=== PATIENT | female | born 1980 | race Caucasian/White ===

== ENCOUNTER 2022-10-06 12:40 | Outpatient (CLI) | payer BC, SELFPAY ==
[2022-10-06 13:08] LABS: Hemoglobin 8.3 g/dL (12.0-15.0); Mean Corpuscular HGB Conc 27.7 g/dl (32-36); Mean Corpuscular Hemoglobin 20.6 pg (26-34); Mean Corpuscular Volume 74.4 fl (80-100); Mean Platelet Volume 10.1 fl (7.4-10.4); Platelet Count Result 397 k/mm3 (150-375); Red Blood Count 4.03 M/mm3 (4.2-5.4); Red Cell Distribution Width 15.7 % (11.5-14.5); White Blood Count 7.2 K/mm3 (4.5-10.0)
[2022-10-06 13:30] LABS: Albumin Level 4.1 g/dL (3.5-5.1); Anion Gap 6 mmol/L (8-16); Blood Urea Nitrogen 13 mg/dL (7-17); Calcium 8.6 mg/dL (8.4-10.2); Carbon Dioxide 26 mmol/L (22-30); Chloride 108 mmol/L (98-107); Estimated Glomerular Filt Rate > 60; Glucose 101 mg/dL (65-110); Potassium 4.3 mmol/L (3.4-5.0); Sodium 140 mmol/L (137-145)
[2022-10-06 14:04] LABS: Iron 23 ug/dL (37-170)
== END 2022-10-06 12:41 | disposition home or self-care (01) ==
LOC: ANHLAB 12:44
PROVIDERS: Visit Provider Surgery Plastic and Reconstructive Surgery
DX: R63.4 Abnormal weight loss (principal)
CPT/HCPCS: 36415; 80048; 82040; 83540; 84425; 85027

== ENCOUNTER 2022-11-03 10:54 | Emergency (ER) | payer BC, SELFPAY ==
[2022-11-03] VITALS (23 sets, daily range): BP systolic 87–128; BP diastolic 51–74; PULSE 52–73; RESP 8–19; TEMP 36.1; O2SAT 97–100
--- NOTE | ~2022-11-03 | XR_ITS ---
Portable chest x-ray Comparison: None Clinical History: Dizziness Findings: Lungs are clear, without focal consolidation or pleural effusion. Cardiomediastinal silho uette is unremarkable. Bones and soft tissues are unremarkable. Impression: Clear lungs. Reviewed, dictated and finalized at location M. Impression: Clear lungs.
--- NOTE | ~2022-11-03 | CT_ITS ---
Non-contrast Head CT History: Dizziness Technique: Axial non-contrast imaging of the brain was performed. Dose reduction technique was used on this scan by utilizing automated exposure control and iterative reconstruction technique. The dose -length product (DLP) was 681.00 mGy-cm. Findings: There is no evidence of intracranial hemorrhage, mass lesion, or acute infarct. Brain par enchyma appears normal. The ventricles and subarachnoid spaces are normal in size. The calvarium ap pears normal. The visualized paranasal sinuses and mastoid air cells are clear. Impression: No significant abnormality seen. Reviewed, dictated and finalized at location . Impression: No significant abnormality seen.
[2022-11-03 12:36] LABS: Basophils Percent Auto 0.7 % (0.2-1.2); Eosinophils Absolute Auto 0.1 K/mm3 (0-0.3); Eosinophils Percent Auto 1.3 % (0-4.4); Hematocrit 29.8 % (37.0-47.0); Hemoglobin 8.2 g/dL (12.0-15.0); Immature Granulocyte Absolute 0.01 K/mm3 (0.00-0.031); Immature Granulocyte Percent A 0.2 % (0-0.5); Lymphocytes Absolute Auto 1.69 K/mm3 (0.9-3.2); Lymphocytes Percent Auto 31.1 % (18.3-44.2); Mean Corpuscular HGB Conc 27.5 g/dl (32-36); Mean Corpuscular Hemoglobin 20.2 pg (26-34); Mean Corpuscular Volume 73.4 fl (80-100); Mean Platelet Volume 10.3 fl (7.4-10.4); Monocytes Absolute Auto 0.3 K/mm3 (0.1-0.6); Monocytes Percent Auto 6.3 % (2.6-8.5); Neutrophils Absolute Auto 3.3 K/mm3 (1.3-6.7); Neutrophils Percent Auto 60.4 % (45.5-73.1); Platelet Count Result 383 k/mm3 (150-375); Red Blood Count 4.06 M/mm3 (4.2-5.4); Red Cell Distribution Width 17.2 % (11.5-14.5); White Blood Count 5.4 K/mm3 (4.5-10.0)
[2022-11-03 12:43] LABS: Anion Gap 4 mmol/L (8-16); Blood Urea Nitrogen 10 mg/dL (7-17); Calcium 8.8 mg/dL (8.4-10.2); Carbon Dioxide 29 mmol/L (22-30); Chloride 105 mmol/L (98-107); Estimated CRCL calculation 67 ml/min; Estimated Glomerular Filt Rate 55; Glucose 82 mg/dL (65-110); Sodium 138 mmol/L (137-145)
--- NOTE | 2022-11-03 13:05 | ED.WEAKNESS ---
HPI - Weakness General Chief complaint: Weakness <Ana María Horta MD - Last Filed: 11/03/22 14:35> Stated complaint: Weakness <Ana María Horta MD - Last Filed: 11/03/22 14:35> Time Seen by Provider: 11/03/22 11:50 <Ana María Horta MD - Last Filed: 11/03/22 14:35> Source: patient <Ana María Horta MD - Last Filed: 11/03/22 14:35> Mode of arrival: ambulatory <Ana María Horta MD - Last Filed: 11/03/22 14:35> Limitations: no limitations <Ana María Horta MD - Last Filed: 11/03/22 14:35> History of Present Illness HPI Narrative: 42 years old white female drove herself to the emergency room because been feeling foggy, called, tingling numbness of the tips of her fingers, started yesterday, has been constant since. History of iron deficiency anemia of unknown etiology, heavy menstrual cycle/today is the third day which is not different than her previous menstrual cycles, gastric sleeve 4 years ago, patient was seen her family physician on October 05, 2022, hemoglobin found to be 8.3. Patient was started on infusion and oral supplement. Patient was told that no surgery until her hemoglobin is 10 <Ana María Horta MD - Last Filed: 11/03/22 14:35> Related Data Allergies/Adverse reactions: Allergies Allergy/AdvReac Type Severity Reaction Status Date / Time No Known Allergies Allergy Verified 11/03/22 11:22 <Ana María Horta MD - Last Filed: 11/03/22 14:35> Review of Systems Review of Systems: All systems reviewed & are unremarkable except as noted in HPI and below <Ana María Horta MD - Last Filed: 11/03/22 14:35> Exam Narrative: General appearance: Well-developed, well-nourished Skin: Pale Head: Normocephalic, nontraumatic Eyes: Clear conjunctiva ENT: Oropharynx normal, ears normal, nose normal Neck: Supple, nontender Chest and respiratory: Airway patent, no respiratory distress, no accessory muscle use Heart: Regular rate/rhythm Abdomen: Soft, nontender, no organomegaly, quiet bowel sounds Vascular: Normal peripheral pulses, normal capillary refill. Musculoskeletal: Normal range of motion, nontender back Neurologic: Alert and oriented ?3, SALESPERSON FURNITURE is normal as tested, no gross motor deficit <Ana María Horta MD - Last Filed: 11/03/22 14:35> Course Reevaluation(s) Reevaluation #1: Patient care was signed out to me by Dr. Horta with the plan for IV infusion and discharged to home. Patient is afebrile with no leukocytosis and a hemoglobin similar to her previous baseline. Patient's CMP is also similar to her baseline with a mildly elevated creatinine. Head CT showed no acute abnormality and chest x-ray lungs were clear. Patient was reevaluated and patient states she does feel improved. Patient reports he does have heavy menstrual cycle and cannot tolerate control for helping to regulate her periods. Patient states that she is not completely satisfied with her current primary care physician. Plan for discharge is to give her alternate number for a primary care physician and also schedule her for follow-up with Dr. Tapia to help further evaluate her anemia. Patient was comfortable with the plan for discharge and close follow-up. <Rafael Orr MD - Last Filed: 11/03/22 19:22> Vital Signs Vital signs: Vital Signs Temperature 97 F L 11/03/22 11:14 Pulse Rate 73 11/03/22 11:14 Respiratory Rate 16 11/03/22 11:14 Blood Pressure 128/68 11/03/22 11:14 Pulse Oximetry 100 11/03/22 11:14 Temperature 97 F L 11/03/22 11:14 Pulse Rate 64 11/03/22 15:50 Respiratory Rate 19 11/03/22 15:50 Blood Pressure 114/52 L 11/03/22 15:50 Pulse Oximetry 100 11/03/22 15:50 <Ana María
--- NOTE | 2022-11-03 13:17 | ECG_ITS ---
Measurements Intervals [place] Rate: 50 P: 25 [place]: 161 QRS: 41 QRSD: 84 T: 40 QT: 440 QTc: 402 Interpretive Statements SINUS BRADYCARDIA BASELINE ARTIFACT- I, II, AVR BORDERLINE ECG NO PREVIOUS ECG AVAILABLE FOR COMPARISON Electronically Signed On 11-03-2022 13:42:04 CDT by James Clark D.O.
[2022-11-03 13:34] LABS: Appearance Urine Clear (Clear); Bilirubin Urine Negative (Negative); Blood Urine Negative (Negative); Color Urine Yellow (Yellow); Glucose Urine UA Negative (Negative); Ketones Urine Negative (Negative); Leukocyte Esterase Ur Negative LEU/UL (Negative); Nitrate Urine Negative (Negative); Protein Urine Negative (Negative); Specific Grav Ur 1.006 (1.001-1.035); Urobilinogen Urine 0.2 mg/dL (<2.0); pH Urine 6.5 (5.0-9.0)
[2022-11-03 13:43] LABS: Add Urine Microscopic? NO
[2022-11-03 13:45] LABS: Troponin I < 0.012 ng/mL (0.000-0.034)
[2022-11-03] MEDS: SODIUM CHLORIDE 0.9% IV 1,000 ML 999 ML IV CONT (14:26)
== END 2022-11-03 15:51 | disposition home or self-care (01) ==
PROVIDERS: Emergency Provider Emergency Medicine
DX: D50.9 Iron deficiency anemia, unspecified (principal); R00.1 Bradycardia, unspecified
CPT/HCPCS: 36415; 70450; 71045; 80048; 81003; 84484; 85025; 93005; 96360; 99284; J7030

== ENCOUNTER 2022-11-20 08:00 | Outpatient (CLI) | payer BC, SELFPAY ==
[2022-11-20 08:41] LABS: Hematocrit 32.9 % (37.0-47.0); Hemoglobin 9.3 g/dL (12.0-15.0); Mean Corpuscular HGB Conc 28.3 g/dl (32-36); Mean Corpuscular Hemoglobin 21.8 pg (26-34); Mean Corpuscular Volume 77.2 fl (80-100); Mean Platelet Volume 10.4 fl (7.4-10.4); Platelet Count Result 323 k/mm3 (150-375); Red Blood Count 4.26 M/mm3 (4.2-5.4); Red Cell Distribution Width 23.1 % (11.5-14.5)
[2022-11-20 09:03] LABS: Iron 61 ug/dL (37-170)
== END 2022-11-20 08:01 | disposition home or self-care (01) ==
LOC: ANHLAB 08:05
PROVIDERS: Visit Provider Surgery Plastic and Reconstructive Surgery
DX: R79.89 Other specified abnormal findings of blood chemistry (principal)
CPT/HCPCS: 36415; 83540; 85027

== ENCOUNTER 2023-03-21 12:26 | Outpatient (CLI) | payer BC, SELFPAY ==
[2023-03-21 13:20] LABS: Hematocrit 38.6 % (37.0-47.0)
== END 2023-03-21 12:27 | disposition home or self-care (01) ==
LOC: ANHSURGERY 12:31
PROVIDERS: Anesthesiology; PCP Family Medicine; Visit Provider Obstetrics & Gynecology
DX: N92.0 Excessive and frequent menstruation with regular cycle (principal); D64.9 Anemia, unspecified; Z01.818 Encounter for other preprocedural examination
CPT/HCPCS: 36415; 85014; 85018; 86850; 86900; 86901

== ENCOUNTER 2023-03-28 01:29 | Day surgery (SDC) | payer BC, SELFPAY ==
[2023-03-20 08:58] VITALS: BMI 36.5
--- NOTE | 2023-03-20 09:04 | PC.NURSE ---
Report to the Outpatient Waiting Room, entrance under the green pavilion located off [facility], at time 7:30 on date 03/28/23. Planned Procedure Time: 9:30. Time changes happen often and if your time is changed the preop area will call you the afternoon before. - You and your visitor will be asked to self-screen and do not enter if you have any COVID symptoms. - A mask is optional within the hospital at this time. Patients may have clear liquids (water, carbonated beverages, clear teas, apple juice) until 3 hours prior to surgery (6:30) with a maximum of 20 ounces. - No food from midnight until time of surgery Take the following medications with a SIP of water the morning of surgery: NONE DO NOT STOP ANY OF YOUR OTHER PRESCRIPTION MEDICATIONS PRIOR TO SURGERY ?EXCEPT THE FOLLOWING Medications to discontinue per physician: N/A Date to take last dose: N/A Please no make-up, nail micronesian, hairspray, perfume, deodorant, or body powder the day of surgery. No jewelry (including any body piercings) or valuables the day of surgery, leave them at home. Please take a shower or bath the night before, or the morning of, surgery with an antibacterial soap. Wear comfortable, loose fitting clothing. - Jewelry must be removed prior to entering the operating room. Rings and piercings that are not removed may be cut off. - The hospital will not accept responsibility for valuables. - Please leave all valuables, including medications, at home the day of surgery. If you are going home after surgery, a licensed [place] driver must drive you home. - NO public transportation without another adult if you receive anesthesia. - We recommend that an adult stay with you for 24 hours following discharge. - We also recommend that you do not drive, make important decision, drink alcoholic beverages, or take any drugs that were not prescribed by your health care provider for at least 24 hours after your discharge time. Follow any additional instructions given to you from your surgeon. If you or anyone in your household have experienced Covid symptoms in the past week, please notify your surgeon or the nurse liaison at the phone number below for possible testing. Telephone instructions given to PT - CAMI SEGURA and asked if any additional questions and then verbalized understanding. Patient advised to call surgeon office or pre surgery nurse liaison [phone] if any additional questions.
--- NOTE | 2023-03-27 15:44 | WPDANESEPPF ---
Anes - Initial Pre Proc Eval Procedure: Operation Date: 03/28/23 09:30 Proposed Procedures p Total Laparoscopic Hysterectomy with Bilateral Salpingectomy - Major Cardona MD Date/Time: 03/27/23 15:44 Surgeon: Major Cardona MD Pre Op Diagnosis: Menorrhagia Patient Data Age: 42 Gender: F Height: 1.73 m Weight: 108.9 kg Allergies Allergy/AdvReac Type Severity Reaction Status Date / Time No Known Allergies Allergy Verified 03/20/23 08:57 Home Medications Medication Instructions Recorded Confirmed Type ferrous sulfate 325 mg (65 mg 325 mg PO DAILY 11/16/22 03/20/23 History iron) tablet (Iron (ferrous sulfate)) Patient hx anesthesia problems: none Family hx anesthesia problems: none Results Review: All pre-operative results and documents have been reviewed as part of the pre-operative evaluation. FOR[facility]LY [facility] Surgical History Surgical History (Updated 03/27/23 @ 15:45 by Ravi Anderson DO) History of sleeve gastrectomy 2018 Social History Social History Smoking packs per day: 0.5 Smoking cigarettes per day: 10.0 Years smoked: 15 Smoking pack-years: 7.50 Smoking status: Former smoker Tobacco type: cigarettes Smoking end date: 04/30/18 Alcohol intake: never Alcohol use details: OCCASIONALLY Substance use: never Substance use type: does not use Living arrangements: with family Additional living arrangements comments: CHILDREN Spiritual care concerns: No Anes - Eval Final PreProcedure Day of Procedure 03/27/23 15:44 Patient weight: obese Heart: regular rate and rhythm Lungs: clear to auscultation Airway: Mallampati scale class II Neurological: alert and oriented Last oral intake: >/= 8 hours ASA classification: II Emergent: no Anesthetic plan: proceed Anesthesia type and monitoring: general ETT and standard monitoring Results Review: All pre-operative results and documents have been reviewed as part of the pre-operative evaluation. Informed Consent: The patient's anesthetic plan and its attendant risks and benefits were discussed with the patient/family/POA. Questions were solicited and answers provided to the satisfaction of the patient/family/POA.
[2023-03-28] VITALS (8 sets, daily range): BP systolic 115–128; BP diastolic 53–77; PULSE 57–89; RESP 12–18; TEMP 35.9–37.3; O2SAT 99–100
[2023-03-28] MEDS: LACTATED RINGERS 1,000 ML 30 ML IV CONT ×2 (08:00→11:06)
[2023-03-28] MEDS: KETOROLAC 15 MG/ML VIAL (*BKC) IV PUSH (08:00)
[2023-03-28] MEDS: ACETAMINOPHEN 500 MG TABLET 1000 MG PO (08:00)
--- NOTE | 2023-03-28 08:59 | WPDHPUPDATE1 ---
History and Physical Update Update Date/Time: 03/28/23 08:59 History and Physical has been reviewed, including an updated exam of the patient. There are NO changes in the patient's condition. Risks, benefits, and alternatives have been discussed and questions answered. Patient agrees to proceed with procedure.
[2023-03-28] MEDS: ceFAZolin 2 GM/D5W 50 ML 2 GM/50 ML BAG IVPB (09:25)
[2023-03-28] MEDS: ceFAZolin SODIUM 1 GM VIAL (10:31)
--- NOTE | 2023-03-28 11:04 | W.PM.PROC2 ---
Procedure Note - Detailed Date of Procedure 03/28/23 Pre-op Diagnosis Menorrhagia Post-op Diagnosis Same Procedure Performed Total laparoscopic hysterectomy.Bilateral salpingectomy Surgeon Major Cardona MD Anesthesia General Indications menorrhagia Findings enlarged fibroid uterus, normal-appearing tubes and ovaries Description of Procedure This patient was taken to the operating room. She was prepped and draped in the dorsal lithotomy position after induction of general anesthesia. The uterine manipulator and Yahaira cup were placed. This was done with a speculum and tenaculum. The speculum was placed. The cervix was grasped with a tenaculum. The stay sutures were placed at 3 and 9:00 a.m.. The stay sutures of 0 Vicryl were brought through the appropriately sized Yahaira cup. The tip of the ROX manipulator was placed in the intrauterine cavity. The cup was slid into place around the cervix and into the fornices. It was locked into place. The sutures were then wrapped around the handle and tied under tension. A 5 mm skin incision was made in the left upper quadrant the abdomen. A 5 mm trocar was inserted into the intrauterine cavity under direct visualization of the scope. Pneumoperitoneum was achieved. A left lower quadrant 11 mm incision was made with scalpel. An 11 mm trocar was inserted into the anterior abdominal cavity under direct visualization the scope. A 5 mm infraumbilical incision was made with a scalpel and a 5 mm trocar was inserted the intra-abdominal cavity under direct visualization of the scope. Bilateral ureteral lysis was performed. This was done from the pelvic brim down to the uterine artery. This was done with careful dissection using sharp and blunt dissection. The fallopian tubes were removed bilaterally. The mesosalpinx around the fallopian tubes were cauterized transected with LigaSure cautery. This was done in a bilateral fashion from the ovary to the uterine cornua. The fallopian tube was transected at the uterine cornu and amputated. The tube was taken out the left lower quadrant trocar site. In a stepwise fashion along the lateral aspects of the uterus the round ligament and broad ligaments were cauterized transected down to the level of the uterine arteries. A bladder flap was created in the bladder was moved distally to the end of the cervix and over the Yahaira cup. The bilateral uterine arteries were cauterized and transected. Colpotomy was then performed. In a circumferential fashion the vagina was transected using unipolar cautery. The incision was made down on the Yahaira cup. The uterus and cervix were taken out through the vagina. A pneumo occluder was placed in the vagina. The vaginal cuff was closed with a 0 V lock suture in a running fashion. The pelvis was irrigated with copious amounts antibiotic irrigation. The ureters were again examined and found to be intact and flowing freely under the uterine arteries into the bladder. The bladder was intact. It was examined directly. The vagina was irrigated with Betadine solution after removal of the Pneumo occluder. The patient was taken to recovery room. She was stable condition. Sponge lap and needle counts were correct x2. Estimated Blood Loss 50 Drains Yes Packing No Pathology Yes Complications No immediate complications Condition Stable Disposition Floor
[2023-03-28] MEDS: fentaNYL CITRATE INJ (*CRX) 100 MCG/2 ML VIAL 25 MCG IV PUSH ×7 (11:25→11:50)
[2023-03-28] MEDS: DEXTROSE 5%/0.45% SOD CHL 1,000 ML 125 ML IV CONT (12:29)
[2023-03-28] MEDS: KETOROLAC 30 MG/ML VIAL (*BKC) IV PUSH ×2 (12:41→19:26)
[2023-03-28] MEDS: ONDANSETRON INJ 4 MG/2 ML VIAL IV PUSH ×2 (14:30→19:26)
[2023-03-28] MEDS: HYDROcodone/acetaminophen (*CRX) 10-325 MG TABLET 1 TAB PO ×2 (15:04→21:09)
--- NOTE | 2023-03-28 19:02 | OBPPTRN ---
1227 Patient transferred to post room #289 via bed. Oriented to unit, room, information board, admission packet and security measures. Patient verbalizes understanding.
[2023-03-29] MEDS: HYDROcodone/acetaminophen (*CRX) 10-325 MG TABLET 1 TAB PO (00:12)
[2023-03-29 00:16] VITALS: BP 120/64; PULSE 72; RESP 18; TEMP 37.1; O2SAT 99
[2023-03-29 05:40] VITALS: BP 118/56; PULSE 76; RESP 18; TEMP 36.9; O2SAT 97
--- NOTE | 2023-03-29 08:24 | PM.GYNPNOP ---
X RAY DEVELOPER - A/P Postoperative Procedures: Procedures Operation Date: 03/28/23 09:30 Actual Procedure Side Surgeon p Total Laparoscopic Hysterectomy with Bilateral Salpingectomy Bilateral Major Cardona MD Postoperative day: 1 Postoperative status: doing well Postoperative plan: see orders Time Spent With Patient Time: Total time spent is greater than 50% in coordination of care (as documented) at patient's floor/unit and/or counseling patient: Time with patient: less than 15 minutes X RAY DEVELOPER- PN:Subj Post-Op Subjective Date/time seen: 03/29/23 08:24 Subjective: patient reports feeling better, patient has no complaints and pain is well controlled Exam Const: General: healthy appearing, comfortable and no acute distress Resp: Auscultation: clear to auscultation bilaterally, no rales, no rhonchi and no wheezes Cardio: Rate: regular rate Heart sounds: no click, no murmurs and no rubs GI: Inspection: non-distended Auscultation: normal bowel sounds Extrem: General: normal to inspection, no pedal edema and no calf tenderness X RAY DEVELOPER - PN: Obj Data Vital Signs Vital Signs: Vital Signs - 24 hr 03/28/23 09:00 03/28/23 11:06 03/28/23 11:20 Temperature 98.8 F 97.7 F Pulse Rate 72 89 73 Respiratory Rate 16 17 16 Blood Pressure 128/77 124/65 119/53 L Pulse Oximetry 99 100 100 Oxygen Delivery Room Air Simple Face Mask Simple Face Mask Oxygen Flow Rate 6 6 03/28/23 11:35 03/28/23 11:50 03/28/23 12:05 Temperature Pulse Rate 57 L 81 72 Respiratory Rate 12 18 14 Blood Pressure 117/53 L 119/63 115/63 Pulse Oximetry 100 100 100 Oxygen Delivery Room Air Room Air Room Air Oxygen Flow Rate 03/28/23 13:24 03/28/23 12:27 03/28/23 21:50 Temperature 96.7 F L 99.1 F Pulse Rate 76 68 Respiratory Rate 16 18 Blood Pressure 116/68 123/59 L Pulse Oximetry 100 99 Oxygen Delivery Room Air Oxygen Flow Rate 03/29/23 00:16 03/29/23 00:16 03/29/23 05:40 Temperature 98.7 F Pulse Rate 72 72 76 Respiratory Rate 18 18 18 Blood Pressure 120/64 Pulse Oximetry 99 99 97 Oxygen Delivery Room Air Room Air Oxygen Flow Rate 03/29/23 05:40 Temperature 98.4 F Pulse Rate 76 Respiratory Rate 18 Blood Pressure 118/56 L Pulse Oximetry 97 Oxygen Delivery Oxygen Flow Rate Intake/Output Intake/Output: Intake & Output 03/26/23 03/27/23 03/28/23 03/29/23 23:59 23:59 23:59 23:59 Intake Total 2100 Output Total 1730 Balance 370 Meds/Results Medications: Active Medications Generic Name Dose Route Start Last Admin Trade Name Freq PRN Reason Stop Dose Admin Hydrocodone Bitart/Acetaminophen 1 tab 03/28/23 12:15 Hydrocodone/Acetaminophen (*Crx) 5-325 Mg Tablet PO Q3H PRN Pain Rated 5 or Less Hydrocodone Bitart/Acetaminophen 1 tab 03/28/23 12:15 03/29/23 00:12 Hydrocodone/Acetaminophen (*Crx) 10-325 Mg Tablet PO 1 tab Q3H PRN Administration Pain Rated 6 or Greater Ketorolac Tromethamine 30 mg 03/28/23 12:15 03/28/23 19:26 Ketorolac 30 Mg/Ml Vial (*Bkc) IV PUSH 04/02/23 12:14 30 mg Q6H PRN Administration Pain Rated 4-6 Naloxone HCl 0.1 mg 03/28/23 12:15 Naloxone Hcl 0.4 Mg/Ml Vial IV PUSH Q2M PRN Respiratory rate less than 10 Ondansetron HCl 4 mg 03/28/23 12:15 03/28/23 19:26 Ondansetron Inj 4 Mg/2 Ml Vial IV PUSH 4 mg Q6H PRN Administration Nausea And Vomiting Simethicone 80 mg 03/28/23 22:24 Simethicone 80 Mg Tab.Chew PO Q2HR PRN Gas Discomfort
[2023-03-29 08:25] VITALS: BP 116/60; PULSE 55; RESP 16; TEMP 37.6; O2SAT 98
[2023-03-29] MEDS: HYDROcodone/acetaminophen (*CRX) 5-325 MG TABLET 1 TAB PO (08:38)
== END 2023-03-29 09:37 | disposition home or self-care (01) ==
LOC: ANHSURGERY 07:29 → ANHOB2 12:16
PROVIDERS: PCP Family Medicine; Visit Provider Obstetrics & Gynecology
PROC: 0UT9FZZ Resection of Uterus, Via Natural or Artificial Opening With Percutaneous Endoscopic Assistance (ICD-10-PCS; CPT 58571; principal; 2023-03-28 09:30)
DX: N92.0 Excessive and frequent menstruation with regular cycle (principal)
CPT/HCPCS: 58571; 88307; 99199; A9270; J0690; J1100; J1170; J1200; J1885; J2250; J2405; J2704; J3010; J7030; J7120

== ENCOUNTER 2023-09-17 16:43 | Outpatient (CLI) | payer BC, SELFPAY ==
[2023-09-17 17:29] LABS: Alanine Aminotransferase 17 U/L (6-35); Albumin Level 4.5 g/dL (3.5-5.1); Alkaline Phosphatase 78 U/L (38-126); Anion Gap 8 mmol/L (4-12); Aspartate Amino Transferase 24 U/L (14-36); Bilirubin,Total 0.4 mg/dL (0.2-1.3); Blood Urea Nitrogen 15 mg/dL (7-17); Calcium 9.6 mg/dL (8.4-10.2); Carbon Dioxide 24 mmol/L (22-30); Chloride 106 mmol/L (98-107); Estimated Glomerular Filt Rate 55; Glucose 93 mg/dL (65-110); Potassium 4.7 mmol/L (3.4-5.0); Sodium 138 mmol/L (137-145)
[2023-09-17 17:34] LABS: Prealbumin 22.5 mg/dL (17.6-36.0)
[2023-09-17 17:42] LABS: Iron 49 ug/dL (37-170)
[2023-09-21 08:13] LABS: Vitamin B1 13 nmol/L (8-30)
== END 2023-09-17 16:44 | disposition home or self-care (01) ==
LOC: ANHLAB 16:45
PROVIDERS: PCP Family Medicine; Visit Provider Surgery Plastic and Reconstructive Surgery
DX: R63.4 Abnormal weight loss (principal)
CPT/HCPCS: 36415; 80053; 83540; 84134; 84425

== ENCOUNTER 2023-10-01 15:28 | Outpatient (CLI) | payer OTHER, SELFPAY ==
[2023-10-01 16:04] LABS: Hematocrit 39.9 % (37.0-47.0); Hemoglobin 12.9 g/dL (12.0-15.0); Mean Corpuscular HGB Conc 32.3 g/dl (32-36); Mean Corpuscular Hemoglobin 28.5 pg (26-34); Mean Corpuscular Volume 88.3 fl (80-100); Mean Platelet Volume 10.3 fl (7.4-10.4); Platelet Count Result 280 k/mm3 (150-375); Red Blood Count 4.52 M/mm3 (4.2-5.4); Red Cell Distribution Width 12.9 % (11.5-14.5); White Blood Count 7.4 K/mm3 (4.5-10.0)
== END 2023-10-01 15:29 | disposition home or self-care (01) ==
LOC: ANHLAB 15:34
PROVIDERS: PCP Family Medicine; Visit Provider Surgery Plastic and Reconstructive Surgery
DX: Z01.818 Encounter for other preprocedural examination (principal)
CPT/HCPCS: 36415; 85027

== ENCOUNTER 2023-10-26 02:09 | Day surgery (SDC) | payer OTHER, SELFPAY ==
[2022-11-16 15:06] VITALS: BMI 34.9
--- NOTE | 2022-11-16 15:10 | SUR.PREOP ---
Report to the Outpatient Waiting Room, entrance under the green pavilion located off [facility], at time 0630 on date 11/23/22. Planned Procedure Time: 0830. Time changes happen often and if your time is changed the preop area will call you the afternoon before. - You and your visitor will be asked to self-screen and do not enter if you have any COVID symptoms. - A mask is optional within the hospital at this time. Patients may have clear liquids (water, carbonated beverages, clear teas, apple juice) until 3 hours prior to surgery with a maximum of 20 ounces. - No food from midnight until time of surgery BEFORE 0530 IN THE MORNING - Infants may have breast milk until 4 hours before surgery, formula 6 hours prior to surgery. - Children will be allowed to drink immediately following surgery. If applicable, please bring a bottle or sippy cup to assist with drinking. Juice, water, soda, and popsicles are readily available. For infants on formula, please bring formula the day of surgery. Pacifiers are allowed. Take the following medications with a SIP of water the morning of surgery: ___N/A DO NOT STOP ANY OF YOUR OTHER PRESCRIPTION MEDICATIONS PRIOR TO SURGERY ?EXCEPT THE FOLLOWING Medications to discontinue per physician ___SUPPLEMENTS 3 DAYS PRIOR. PT TAKES IRON MEDICATION. CONTINUE PER MD _ Date to take last dose Please no make-up, nail tajik, hairspray, perfume, deodorant, or body powder the day of surgery. No jewelry (including any body piercings) or valuables the day of surgery, leave them at home. Please take a shower or bath the night before, or the morning of, surgery with an antibacterial soap. Wear comfortable, loose fitting clothing. Children are encouraged to wear pajamas. - Jewelry must be removed prior to entering the operating room. Rings and piercings that are not removed may be cut off. - The hospital will not accept responsibility for valuables. - Please leave all valuables, including medications, at home the day of surgery. If you are going home after surgery, a licensed commercial trailer truck driver must drive you home. - NO public transportation without another adult if you receive anesthesia. - We recommend that an adult stay with you for 24 hours following discharge. - We also recommend that you do not drive, make important decision, drink alcoholic beverages, or take any drugs that were not prescribed by your health care provider for at least 24 hours after your discharge time. For Pediatric surgeries, we recommend two adults accompany the child home. Follow any additional instructions given to you from your surgeon. If you or anyone in your household have experienced Covid symptoms in the past week, please notify your surgeon or the nurse liaison at the phone number below for possible testing. Telephone instructions given to PATIENT and asked if any additional questions and then verbalized understanding. Patient advised to call surgeon office or pre surgery nurse liaison [phone] if any additional questions.
[2023-10-18 12:51] VITALS: BMI 33.5
--- NOTE | 2023-10-18 13:14 | PC.NURSE ---
Report to the Outpatient Waiting Room, entrance under the green pavilion located off [facility], at time __0600 on date _10/26/23 . Planned Procedure Time: _07 . Time changes happen often and if your time is changed the preop area will call you the afternoon before. - You and your visitor will be asked to self-screen and do not enter if you have any COVID symptoms. - A mask is optional within the hospital at this time. Patients may have clear liquids (water, carbonated beverages, clear teas, apple juice) until 3 hours prior to surgery with a maximum of 20 ounces. - No food from midnight until time of surgery Take the following medications with a SIP of water the morning of surgery: ____NONE DO NOT STOP ANY OF YOUR OTHER PRESCRIPTION MEDICATIONS PRIOR TO SURGERY ?EXCEPT THE FOLLOWING Medications to discontinue per physician NONE Date to take last dose__NONE Please no make-up, nail belarusian, hairspray, perfume, deodorant, or body powder the day of surgery. No jewelry (including any body piercings) or valuables the day of surgery, leave them at home. Please take a shower or bath the night before, or the morning of, surgery with an antibacterial soap. Wear comfortable, loose fitting clothing. Children are encouraged to wear pajamas. - Jewelry must be removed prior to entering the operating room. Rings and piercings that are not removed may be cut off. - The hospital will not accept responsibility for valuables. - Please leave all valuables, including medications, at home the day of surgery. If you are going home after surgery, a licensed lease purchase driver must drive you home. - NO public transportation without another adult if you receive anesthesia. - We recommend that an adult stay with you for 24 hours following discharge. - We also recommend that you do not drive, make important decision, drink alcoholic beverages, or take any drugs that were not prescribed by your health care provider for at least 24 hours after your discharge time. Follow any additional instructions given to you from your surgeon. If you or anyone in your household have experienced Covid symptoms in the past week, please notify your surgeon or the nurse liaison at the phone number below for possible testing. Telephone instructions given to __CAIM and asked if any additional questions and then verbalized understanding. Patient advised to call surgeon office or pre surgery nurse liaison [phone] if any additional questions.
[2023-10-26] VITALS (16 sets, daily range): BP systolic 128–161; BP diastolic 66–97; PULSE 78–115; RESP 14–20; TEMP 36.3–37.5; O2SAT 97–100
[2023-10-26 06:46] LABS: Urine Cotinine NEGATIVE
--- NOTE | 2023-10-26 06:56 | WPDHPUPDATE1 ---
History and Physical Update Update Date/Time: 10/26/23 06:56 History and Physical has been reviewed, including an updated exam of the patient. There are NO changes in the patient's condition. Risks, benefits, and alternatives have been discussed and questions answered. Patient agrees to proceed with procedure.
--- NOTE | 2023-10-26 06:56 | W.PM.PROC2 ---
Procedure Note - Detailed Date of Procedure 10/26/23 Pre-op Diagnosis skin laxity Post-op Diagnosis Same Procedure Performed 1. Ienfs-dy-[id number] abdominoplasty 2. Bilateral brachioplasty Surgeon Khurram Hoffmann MD Anesthesia General Findings Tissue removed: 3806 grams Diastasis: 5 cm Lipoaspirate: Back 1450 cc Abdomen 1100 cc Bilateral arms 800 Description of Procedure They are here today for the above procedures. Previously and again today the risks, benefits, alternatives were discussed in extensive detail. I wanted them to be very realistic about the risks involved as well as expectations. We discussed aftercare and what to monitor for. I was very upfront about the risks of wound breakdown leading to loss of skin, open wounds, and need for additional procedures with permanent abdominal deformity. We discussed DVT/PE risks and management. Made sure answered all of their questions to their satisfaction today and consent was obtained. They were marked in the preoperative holding area with their verification. The patient was taken to the operating room. Anesthesia was provided by anesthesiology. A Grullon catheter was started. Placed prone on the operating room table with care taken to protect from injury. Prepped and draped in a standard sterile fashion. A surgical time-out was taken. Stab incisions were made and tumescent solution was infiltrated. Once adequate time was allowed for hemostasis a 5mm basket and 3mm multi hole cannula were utilized to complete suction lipectomy based on S.A.F.E. technique in multiple planes and passes. Suction lipectomy continued to result based on pre-operative planning, intra-operative observation, and rolling pinch test which were in full agreement. Patient was then placed supine with care taken to protect from injury. Arms Stab incisions were made and I tumesced with a tumescent solution. Once adequate time for hemostasis suction lipectomy was with a 4 mm basket cannula based on S.A.F.E. technique. This was completed based on preoperative planning, intraoperative observation, and rolling pinch test which was in full agreement. I completely de-fatted the planned resection area and a strip avulsion technique was completed. Starting proximal to distal a 10 blade was used to excise the intervening skin and this was tacked as we proceed to ensure good closure. This was closed using a 2-0 Quill, 3-0 strata fix, running subcuticular 4-0 Monocryl, and tissue glue. Abdomen I placed the patient in a flexed position to verify the upper and lower markings would reach. I then placed supine. A thorough abdominal examination was completed. Stab incisions were made and tumescent solution infiltrated. Stab incisions were made and tumescent solution was infiltrated. Once adequate time was allowed for hemostasis a 5mm basket and 3mm multi hole cannula were utilized to complete suction lipectomy based on S.A.F.E. technique in multiple planes and passes. Suction lipectomy continued to result based on pre-operative planning, intra-operative observation, and rolling pinch test which were in full agreement. A 10 blade was used to make the upper incision and vertical. I continued dissection down to the level of fascia. Elevated just what was necessary for repair of the diastasis. I then again flexed the bed to verify the upper skin flap would reach the lower markings without tension. Once verified I placed her supine once again and a 10 blade used to make the lower incision. I elevated up to level the umbilicus and left the umbilicus intact on a well-vascularized stalk. The intervening tissue was removed. A 2 mm blunt cannula with 0.5% bupivacaine was injected deep to the fascia bilaterally. I plicated the diastasis recti using 0 PDO Stratafix barbed suture. This was in 2 separate layers using 2 separate sutures as well. The patient was flexed and starting from superior to inferior bega
[2023-10-26] MEDS: LACTATED RINGERS 1,000 ML 30 ML IV CONT ×3 (07:08→15:44)
--- NOTE | 2023-10-26 07:23 | WPDANESEPPF ---
Anes - Initial Pre Proc Eval Procedure: Operation Date: 10/26/23 07:30 Proposed Procedures p Leatha De Shannan Abdominoplasty with Liposuction - Khurram Hoffmann MD s Bilateral Brachioplasty - Khurram Hoffmann MD Date/Time: 10/26/23 07:23 Surgeon: Khurram Hoffmann MD Pre Op Diagnosis: skin laxity Patient Data Age: 43 Gender: F Height: 1.75 m Weight: 103 kg Allergies Allergy/AdvReac Type Severity Reaction Status Date / Time No Known Allergies Allergy Verified 10/26/23 06:17 Home Medications Medication Instructions Recorded Confirmed Type No Home Medications 10/18/23 10/18/23 History Laboratory Tests 10/26/23 06:15 Cotinine Negative Patient hx anesthesia problems: none Family hx anesthesia problems: none Results Review: All pre-operative results and documents have been reviewed as part of the pre-operative evaluation. [facility] Surgical History Surgical History History of sleeve gastrectomy 2019 Social History Social History Smoking packs per day: 0.5 Smoking cigarettes per day: 10.0 Years smoked: 15 Smoking pack-years: 7.50 Smoking status: Never smoker Tobacco type: cigarettes Smoking end date: 04/30/18 Alcohol intake: never Alcohol use details: OCCASIONALLY Substance use: never Substance use type: does not use Living arrangements: with family Additional living arrangements comments: CHILDREN Spiritual care concerns: No Anes - Eval Final PreProcedure Day of Procedure 10/26/23 07:23 Patient weight: obese Heart: regular rate and rhythm Lungs: clear to auscultation Airway: Mallampati scale class II Neurological: alert and oriented Last oral intake: >/= 8 hours ASA classification: II Emergent: no Anesthetic plan: proceed Anesthesia type and monitoring: general ETT and standard monitoring Results Review: All pre-operative results and documents have been reviewed as part of the pre-operative evaluation. Informed Consent: The patient's anesthetic plan and its attendant risks and benefits were discussed with the patient/family/POA. Questions were solicited and answers provided to the satisfaction of the patient/family/POA.
[2023-10-26] MEDS: SCOPOLAMINE 1 MG PATCH 1 PATCH TRANSDERM (07:36)
[2023-10-26] MEDS: ceFAZolin 2 GM/D5W 50 ML 2 GM/50 ML BAG IVPB (07:38)
[2023-10-26] MEDS: TRANEXAMIC ACID 1,000MG/ISO100 1,000 MG/100 ML BAG 200 MG IVPB (07:38)
[2023-10-26] MEDS: BUPIVACAINE/EPINEPHRINE 0.5% 50 ML VIAL 60 ML INFILTRATE (08:13)
--- NOTE | 2023-10-26 09:24 | SUR.OPER ---
prone position to supine at 0855, log rolled and anesthesia at hob
--- NOTE | 2023-10-26 10:26 | SUR.OPER ---
abdomen start at 1023
[2023-10-26] MEDS: ceFAZolin SODIUM 1 GM VIAL 2 GM IV PUSH (11:38)
[2023-10-26] MEDS: LACTATED RINGERS IRRIG 1,000 ML, LIDOCAINE HCL 1% LOCAL INJ 50 ML, EPINEPHrine HCL INJ ... INFILTRATE (13:16)
--- NOTE | 2023-10-26 14:40 | SUR.PHASEI ---
Pt is in flexed position on admission to PACU - maintained.
[2023-10-26] MEDS: fentaNYL CITRATE INJ (*CRX) 100 MCG/2 ML VIAL 25 MCG IV PUSH ×4 (15:41→16:23)
[2023-10-26] MEDS: ONDANSETRON INJ 4 MG/2 ML VIAL IV PUSH (16:03)
[2023-10-26] MEDS: diphenhydrAMINE HCl INJ 50 MG/ML VIAL 25 MG IV PUSH (17:03)
[2023-10-26] MEDS: oxyCODONE HCL (*CRX) 5 MG TAB IR PO (17:28)
--- NOTE | 2023-10-26 18:22 | SUR.PHASEII ---
Pt. left discharge instructions in room upon discharge. Pt called to notify. Pt states that they do not want to come back and get them. Education was provided verbally in Phase 2 prior to discharge. Pt took note of MD Hoffmann's contact phone number and was instructed to call office with any further questions or concerns.
== END 2023-10-26 18:03 | disposition home or self-care (01) ==
PROVIDERS: PCP Family Medicine; Visit Provider Surgery Plastic and Reconstructive Surgery
PROC: (CPT 15847; principal; 2023-10-26 07:30)
PROC: (CPT 15836; 2023-10-26 07:30)
DX: Z41.1 Encounter for cosmetic surgery (principal); L57.4 Cutis laxa senilis; E07.9 Disorder of thyroid, unspecified; D64.9 Anemia, unspecified; K44.9 Diaphragmatic hernia without obstruction or gangrene; E66.9 Obesity, unspecified; Z68.33 Body mass index [BMI] 33.0-33.9, adult; Z98.890 Other specified postprocedural states; Z98.84 Bariatric surgery status
CPT/HCPCS: 15847; 15878; 15830; 15836; 80307; A9270; J0171; J0690; J1100; J1170; J1200; J2250; J2405; J2704; J3010; J7120

== ENCOUNTER 2025-04-22 08:04 | Outpatient (CLI) | payer BC, SELFPAY ==
--- NOTE | ~2025-04-22 | MM_ITS ---
EXAMINATION: MM screening taylor BI w teresita HISTORY: Screening. TECHNIQUE: Craniocaudal and mediolateral oblique 3-D tomosynthesis images were obtained and synthetic 2-D images were generated. CAD analysis was submitted and interpreted. COMPARISON: None available. BREAST PARENCHYMAL COMPOSITION: Not Dense: There are scattered areas of fibroglandular Tissue. FINDINGS: No suspicious masses are seen. There are no suspicious calcifications. No unexplained architectural distortion is seen. There are no skin or nipple abnormalities identified. There is no adenopathy seen on the images submitted. IMPRESSION: No mammographic evidence to suggest malignancy is seen. The patient may return to screening mammography as per ACR guidelines. BI-RADS 1 - Negative. Reviewed, dictated and finalized at location A. NESS JOB TITLES
--- OUTSIDE RECORDS SUMMARY | 2025-04-22 08:08 | XMS_ITS | Clinical Summary ---
Author Organization [facility] lin Address [address] [place] [address] Care Team Providers Care Cash Analyst Name Role Phone Eligio Aguilar DO Primary Care Provider [phone]- [phone] Social History Tobacco Use Types Packs/Day Years Used Date Smoking Tobacco: Never Assessed Comments Unknown Sex and Gender Information Value Date Recorded Sex Assigned at Not on file Legal Sex Female 2:45 PM EDT Gender Identity Not on file Sexual Orientation Not on file Plan of Treatment Not on file Medical Devices Not on file Care Teams Cash Analyst Relationship Specialty Start Date End Date Eligio Aguilar DO [address] [place] [id number] PCP - General Family Medicine 10/25/19
--- OUTSIDE RECORDS SUMMARY | 2025-04-22 08:09 | XMS_ITS | Data Portability ---
Author Organization [facility] Address [address] [place] [address] Care Team Providers Care Slate Handler Name Role Phone JUNE JASMINE Primary Care Provider [phone] Assessment Encounter Date Assessment Date Assessment LastModified by Organization Details LastModified Time 09/25/2024 09/25/2024 Annual gynecological exam performed. Patient will come back in a year unless there are new symptoms. [email or web address] Not available 09/25/2024 09:04:14 Plan of Treatment Reminders Order Date Submit Date Provider Last Modified By Organization Details Last Modified Time Details Appointments None recorded. Lab culture, aerobic + anaerobic 2024 025 [facility] (Lab), [address] [place], [address], 5 11:57:45 unlisted lab - women's health swab, [facility] 2024 025 [facility] (Lab), [address], [place], [address], 5 14:20:08 hsv-2 igg Ab, serum 2023 024 [facility] (Lab), [address], [place], [address], 4 14:27:36 hbcab (hepatitis B core Ab) igm, serum 2023 024 [facility] (Lab), [address] [place], [address], 4 14:27:37 HBsAg (hepatitis B surface Ag), serum 2023 024 [facility] (Lab), [address], [place], [address], 4 14:27:36 hepatitis C virus Ab, serum 2023 024 [facility] (Lab), [address], [place], [address], 4 14:27:37 HIV 1+2 AB + HIV 1 p24 Ag, qualitative immunoassay , serum 2023 [facility] (Lab), [address], [place], [address], 4 14:27:38 RPR (rapid plasma reagin), serum 2023 024 [facility] (Lab), [address], [place], [address], 4 14:27:38 Referral None recorded. Procedures None recorded. Surgeries None recorded. Imaging MAMMO, screening, digital, bilateral [address], [address], [place] [address], [place], [address], 5 11:11:37 Medication Orders Bactrim DS 800 mg-160 mg tablet 2024 025 [facility]armacy #[id number], [address] [place], [address], 5 18:12:39 metronidazo le 0.75 % (37.5 mg/5 gram) vaginal gel 2024 025 [facility]/Pharmacy #[id number], [address] [place], [address], 5 09:34:51 clotrimazol e-betametha sone 1 %-0.05 % topical cream 2023 024 [facility]/Pharmacy #[id number], [address] [place], [address], 5 09:04:40 terconazole 0.8 % vaginal cream 2023 024 [email or web address] [facility]/Pharmacy #[id number], [address] [place], [address], 5 09:04:40 Patient TargetsNo targets recorded. Patient InstructionsNo instructions recorded. Reason for Referral None Reported. Results Created Date Observation Date Name Description Value Unit Range Abnormal Flag Note LastModifiedBy Organization Detail LastModifiedTime 11/21/1911/21/2023 VAGIN ITIS/ VAGIN OSIS, DNA PROBE mary sp. detection, direct probe Positi ve negati ve abnormal Not Available [facility] (Lab) [address] [place], [address], 11/22/2023 12:32:35 11/21/19 24 11/21/2023 VAGIN ITIS/ VAGIN OSIS, DNA PROBE gardnerella vag. detection, direct probe Positi ve negati ve abnormal Not Available [facility] (Lab) [address] [place], [address], 11/22/2023 12:32:35 11/21/19 24 11/21/2023 VAGIN ITIS/ VAGIN OSIS, DNA PROBE trichomonas vag. detection, direct probe Negati ve negati ve Not Available [facility] (Lab) [address] [place], [address], 11/22/2023 12:32:35 11/21/19 24 11/21/2023 CT/GC AND TRICH OMONA S VAGIN GILBERT (RRNA ), SWAB chlamydia trachomatis, PCR Negati ve negati ve Not Available [facility] (Lab) [address] [place], [address], 11/22/2023 12:32:35 11/21/19 24 11/21/2023 CT/GC AND TRICH OMONA S VAGIN GILBERT (RRNA ), SWAB neisseria gonorrhoeae, PCR Negati ve negati ve Not Available [facility] (Lab) [address], [place], [address], 11/22/2023 12:32:35 11/21/19 24 11/21/2023 CT/GC AND TRICH OMONA S VAGIN GILBERT (RRNA ), SWAB trichomonas vaginalis ribosomal RNA (rrna) Negati ve negati ve Not Available [facility] (Lab) [address], [place], [address], 11/22/2023 12:32:35 11/21/19 24 11/21/2023 HERPE S SIMPL EX VIRUS TYPE 2 SPECI FIC AB, IGG herpes simplex virus 2 IgG Negati ve negati ve Not Available [facility] (Lab) [address], [place], [address], 11/22/2023 14:27:36 11/21/19 24 11/21/2023 HERPE S SIMPL EX VIRUS TYPE 2 SPECI FIC AB, IGG herpes simples virus 2 IgG, quant <0.2 ai 0.0-0. 8 Not Available [facility] (Lab) [address], [place], [address], 11/22/2023 14:27:36 11/21/19 24 11/21/2023 HEPAT ITIS B SURFA CE ANTIG EN hepatitis B surface antigen Non-re active non-re active This assay was perfo rmed using [employer] n reage nts and test kits. Value s obtai enrike with other assay metho ds or kits canno t be used inter sosa eably . Not Available [facility] (Lab) [address], [place], [address], 11/22/2023 14:27:36 11/21/19 24 11/21/2023 HEPAT ITIS C ANTIB PETROS SCREE N, REFLE X TO CONFI RMATI ON hepatitis C antibody Non-re active non-re active Antib odies to HCV Not Detec shruthi, does not exclu de the possi bilit y of expos ure to HCV. Not Available [facility] (Lab) [address], [place], [address], 11/22/2023 14:27:37 11/21/19 24 11/21/2023 HEPAT ITIS B CORE, IGM hepatitis B core IgM antibody Non-re active non-re active IgM anti- HBc not detec shruthi. Does not exclu de the possi bilit y of expos ure to or infec tion with HBV. Not Available [facility] (Lab) [address], [place], [address], 11/22/2023 14:27:37 11/21/19 24 11/21/2023 RPR SCREE N, REFLE X TITER /CONF IRMAT ION RPR screen Nonrea ctive nonrea ctive Not Available [facility] (Lab) [address] [place], [address], 11/22/2023 14:27:38 11/21/19 24 11/21/2023 HIV 1/2 ANTIG EN/AN TIBOD Y, REFLE X CONFI RMATI ON HIV antigen/anti body Nonrea ctive nonrea ctive HIV-1 antig en and HIV-1 /HIV- 2 antib odies were not detec shruthi. No labor atory evide nce of HIV infec tion. Not Available [facility] (Lab) [address] [place], [address], 11/22/2023 14:27:38 09/26/1909/25/2024 WOMEN 'S HEALT H SWAB, [place] bacterial vaginosis (bv), tma Positi ve negati ve abnormal This test detec ts ribos omal RNA from bacte melissa assoc iated with bacte rial vagin osis (BV), inclu ding Lacto bacil jacob (L. gasse ri, L. crisp atus and L. jense ludwin), Gardn erell a vagin gilbert, and Atopo bium vagin ae by Trans cript ion-M ediat ed Ampli ficat ion (TMA) . A singl e quali tativ e resul t is repor shruthi based on instr ument softw are to deter mine BV posit marce or negat marce statu s. Not Available [facility] (Lab) [address] [place], [address], 09/26/2024 14:20:08 09/26/19 25 09/25/2024 WOMEN 'S HEALT H SWAB, [place] mary species, tma Positi ve negati ve abnormal Not Available [facility] (Lab) [address] [place], [address], 09/26/2024 14:20:08 09/26/19 25 09/25/2024 WOMEN 'S HEALT H SWAB, [place] mary glabrata, tma Negati ve negati ve Not Available [facility] (Lab) [address] [place], [address], 09/26/2024 14:20:08 09/26/19 25 09/25/2024 WOMEN 'S HEALT H SWAB, [place] trichomonas vaginalis, tma Negati ve negati ve This assay tests for and diffe renti ates betwe en Hayley da glabr brianna, the Hayley da speci es group (C. albic ans, C. tropi calis , C. parap kenneth is, C. dubli ni is), and Trich omona s vagin gilbert by Trans cript ion-M ediat ed Ampli ficat ion (TMA) . Not Available [facility] (Lab) [address] [place], [address], 09/26/2024 14:20:08 10/09/19 25 10/08/2024 CULTU RE: AEROB IC/AN AEROB IC result report SEE RESULT S BELOW Test: Cultu re: Aerob ic/An aerob ic Speci men Sourc e: Other Speci men Type: Micro biolo gy Speci men Speci men Date: 2024 1744 Resul t Date: 2024 1054 Resul t Statu s: Final resul scarlett moreland Lab: [facility] [address] [facility] [address] Tel: CULTU RE ----- ----- ----- --- No growt h at 4 days STAIN ----- ----- ----- --- No organ isms seen Xavier ed repor t note: this gram stain has been modif ied after furth er exami purnima burger [facility] t speci men gram stain on Not Available [facility] (Lab) [address], [place], [address], 10/13/2024 11:57:44 Result Notes None recorded. Procedures Surgical History Date Name Laterality Status Provider Name and Address Organization Details Recorded Time 10/09/19 25 I&D completed ART HA NP [address], [place], [address], [facility] 10/08/2024 18:22:01 10/29/19 [address] [facility] 11/21/2023 16:18:42 10/29/19 24 reduction of batwing arms completed Tram Tito [facility] 11/21/2023 16:19:15 03/28/20 23 TOTAL HYSTERECTOMY, LAPAROSCOPIC, WITH BILATERAL SALPINGECTOMY (SURG) completed Amira Woo [facility] 05/15/2023 22:36:18 02/14/20 23 Date of Last Pap Smear completed Angie Mario [facility] 09/25/2024 09:05:26 04/30/19 20 Date of Last Mammogram completed Tram Davison [facility] 01/31/2022 10:06:48 10/12/19 19 laparoscopic sleeve gastrectomy completed [facility] 01/31/2022 10:09:59 04/30/19 17 procedure on shoulder completed [facility] 01/31/2022 10:10:09 04/30/19 16 thyroidectomy completed [facility] 01/31/2022 10:10:47 Bariatric Surgery completed [facility] 02/15/2023 15:28:47 Thyroid Surgery completed [facility] 02/15/2023 15:28:47 Imaging Results None recorded. Procedure Notes None recorded. Medical Equipment None Reported. Allergies No known drug allergies Medications Name Sig Start Date Stop Date Status Note LastModified by Organization Details LastModified Time carisoprodo l 350 mg tablet TAKE 1 TABLET BY MOUTH EVERY EIGHT HOURS NEEDED FOR PAIN FOR MUSCLE SPASM. 02/13 completed Not Available Not Available Not Available amoxicillin 500 mg capsule TAKE 1 CAPSULE BY MOUTH EVERY 6 HOURS FOR 7 DAYS 01/31 completed Not Available Not Available Not Available metronidazo le 0.75 % (37.5 mg/5 gram) vaginal gel INSERT 1 APPLICATO RFUL VAGINALLY EVERY DAY AT BEDTIME FOR 5 DAYS active Not Available Not Available No t Available ondansetron HCl 4 mg tablet TAKE 1 TABLET BY MOUTH EVERY 6 HOURS NEEDED FOR NAUSEA 02/13 completed Not Available Not Available Not Available terconazole 0.8 % vaginal cream Insert 1 applicato rful every day by vaginal route. 2023 active Not Available Not Available Not Avai lable acetaminoph en 300 mg-codeine 30 mg tablet TAKE 1 TABLET BY MOUTH EVERY 4 TO 6 HOURS NEEDED FOR PAIN 01/31 completed Not Available Not Available Not Available sulfamethox azole 800 mg-trimetho prim 160 mg tablet TAKE 1 TABLET BY MOUTH EVERY 12 HOURS FOR 7 DAYS active Not Available Not Available No t Available oxycodone-a cetaminophe n 5 mg-325 mg tablet TAKE 1 TABLET BY MOUTH EVERY 4 HOURS NEEDED FOR PAIN 11/20 completed Not Available Not Available Not Available clotrimazol e-betametha sone 1 %-0.05 % topical cream APPLY TO THE AFFECTED AND SURROUNDI NG AREAS OF SKIN BY TOPICAL ROUTE 2 TIMES PER DAY IN THE MORNING AND EVENING FOR 2 WEEKS 2023 active Not Available Not Available Not Avai lable docusate sodium 100 mg capsule TAKE 1 CAPSULE BY MOUTH TWICE A DAY 02/13 completed Not Available Not Available Not Available bupropion HCl XL 150 mg 24 hr tablet, extended release TAKE 1 TABLET BY MOUTH EVERY DAY 01/31 completed Not Available Not Available Not Available 05/19 (28) 1 mg-20 mcg (21)/75 mg (7) tablet 01/31 completed Not Available Not Available Not Available chlorhexidi ne gluconate 0.12 % mouthwash SWISH AND SPIT 15 ML FOR 30 SECONDS ONCE DAILY 01/31 completed Not Available Not Available Not Available Synthroid 09/25 completed Not Available Not Available Not Available ID NOW COVID-19 Test Kit USE 1 KIT TODAY DIRECTED 01/31 completed Not Available Not Available Not Available Vitals Date Recorded Body height Body mass index (BMI) Body weight Systolic And Diastolic Provider Name and Address Organization Details Last Updated DateTime 09/25/2024 171.45 cm 35.9 kg/m2 292568.3 g 127/72 mm[Hg] [facility] 09/25/2024 09:10:32 Date Recorded Body height Body mass index (BMI) Body weight Systolic And Diastolic Provider Name and Address Organization Details Last Updated DateTime 10/08/2024 171.45 cm 36.5 kg/m2 426611.67 g 132/76 mm[Hg] [facility] 10/08/2024 17:41:24 Date Recorded Body height Body mass index (BMI) Body weight Systolic And Diastolic Provider Name and Address Organization Details Last Updated DateTime 11/21/2023 171.45 cm 36 kg/m2 030282.02 g 147/96 mm[Hg] Tram Francis [facility] 11/21/2023 16:15:40 Date Recorded Body height Body mass index (BMI) Body weight Systolic And Diastolic Provider Name and Address Organization Details Last Updated DateTime 04/04/2023 171.45 cm 38 kg/m2 787199.72 g 119/78 mm[Hg] Anabel Garcia [facility] 04/04/2023 18:23:50 Social History Question Answer Notes LastModified by Organizat ion Details LastModified Time Tobacco Smoking Status Never Smoker Kim Han inge [facility] 04/04/2023 18:05:14 How Many Years Have You Consumed Alcohol? 19 Information not available 02/15/2023 Are You Blind Or Do You Have Difficulty Seeing? No Information n ot available 01/31/2022 What Is Your Level Of Caffeine Consumption? Occasional Information not available 01/31/2022 In The 14 Days Before Symptom Onset, Have You Had Close Contact With A Laboratory-confirm ed COVID-19 While That Case Was Ill? No Information n ot available 02/13/2023 In The 14 Days Before Symptom Onset, Have You Had Close Contact With A Person Who Is Under Investigation For COVID-19 While That Person Was Ill? No Information not available 02/13/2023 Have You Been To An Area Known To Be High Risk For COVID-19? No Information not available 02/13/2023 Are You Deaf Or Do You Have Serious Difficulty Hearing? No Information not available 01/31/2022 What Type Of Diet Are You Following? REGULAR Information n ot available 01/31/2022 What Is The Highest Grade Or Level Of School You Have Completed Or The Highest Degree You Have Received? [id number] Information not available 02/15/2023 Do You Use Protection During Sex? Always Information not available 02/15/2023 Do You Use Your Seat Belt Or Car Seat Routinely? Yes Information not available 01/31/2022 Do You Have Smoke And Carbon Monoxide Detectors In Your Home? Yes Information not available 01/31/2022 How Much Tobacco Do You Smoke? No Information not available 02/15/2023 Do You Use Sunscreen Routinely? Yes Information not available 01/31/2022 Have You Used IV Drugs? No Information not available 02/15/2023 Do You Have Difficulty Walking Or Climbing Stairs? No [email or web address] Information not available 04/04/2023 Sex: Unknown Functional Status Question Answer Note LastModified by Organizat ion Details LastModified Time Do you use any illicit or recreational drugs? No Information not available 01/31/2022 What is your level of alcohol consumption? Occasional Information not available 01/31/2022 Are you able to walk independently without assistance or assistive devices? YESWOREST Information not available 01/31/2022 Are you able to care for yourself independently? 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 No Information not available 04/04/2023 What is your exercise level? Occasional Information not available 02/15/2023 Mental Status Question Answer Note LastModified by Organization D etails LastModified Time Do you feel stressed (tense, restless, nervous, or anxious, or unable to sleep at night)? [id number] Information not available 01/31/2022 Family History Relationship Description Onset Age of this Age Resolved Age Notes LastModified by Organization Details LastModified Time Mother Malignant neoplasm of breast [email or web address] Not available 2024 17:33:50 Mother Hypercholest erolemia [email or web address] Not available 2024 17:33:50 Mother Hypertensive disorder Not available 2024 17:33:50 Mother Malignant neoplasm of ovary [email or web address] Not available 2024 17:33:50 Mother Hypercholest erolemia Not available 2024 17:33:50 Mother Malignant neoplasm of breast [email or web address] Not available 2024 17:33:50 Mother Malignant neoplasm of ovary [email or web address] Not available 2024 17:33:50 Mother Hypertensive disorder [email or web address] Not available 2024 17:33:50 Father Hypercholest erolemia [email or web address] Not available 2024 17:33:50 Father Hypercholest erolemia [email or web address] Not available 2024 17:33:50 Medical History Condition Response Allergies (Food, seasonal, environmental ) N Other N Blood Transfusion N Drug/Latex Allergies/Reactions N Breast Cancer N Dermatologic Disorders N Lung Disease N Defects or Inherited Disease N Breast Problem N Gestational Diabetes N Hematologic disorders N Anesthesia Complications N History of STI N Deep Vein Thrombosis N Polycystic ovary syndrome N Anxiety Disorder N Autoimmune disease N Arthritis N Infertility N Polyps N Acid Reflux (GERD) N History of abnormal pap N Cancer N Stroke N Varicosities N Neurologic/Epilepsy N Endometriosis N High Cholesterol N Headaches N Fibromyalgia N Kidney Disease N Heart Problems N Kidney or Bladder Problems N Thyroid Problems N GI Problems N Eating Disorder N Anemia N Art (IVF or FET) N Psychiatric Illness N Ovarian Cancer N Diabetes N Pulmonary (TB, Asthma) N Hepatitis/Liver Disease N No Past Medical History N Eczema N Urinary Tract Infection N Abuse/Domestic Violence N Asthma N Trauma/Violence N Depression/ depression N Heart Disease N Pre-Eclampsia N Hypertension N Osteoporosis N Thrombophilias N Gynecological History Statement/Question Response Abnormal Pap N Date of Last Mammogram 04/30/2019 Flow Moderate Date of LMP 03/03/2023 N Was last menstrual period normal Y STIs/STDs N HPV Vaccine N Duration of Flow (days) 6 Current Control Method Hysterectom y Age at First Child 20 Are cycles usually normal Y Frequency of Cycle (Q days) 14 Sexually Active? Y Menses Monthly Y Age of first menstrual cycle 14 Date of Last Pap Smear 02/13/2023 Sexual Problems? N Desired Control Method N/A LMP Approximate N Obstetrics History GPAL:G 5 P 0 0 2 3 Type Value Spontaneous 2 Living 3 Total 5 Past Encounters Encounter ID Performer Location Encounter Start Date Encounter Closed Date Diagnosis/Indication Diagnosis SNOMED-CT Code Diagnosis ICD10 Code Diagnosis IMO Codes Diagnosis Note [id number] Laura Rueda [facility] [address] [address] 01/31/2022 09:45:33 01/31/2022 10:21:48 Gynecologic examination [id number] Z01.419 Take Calcium with Vitamin D 1200mg daily if not receiving in daily diet. It is strongly advised to have an annual flu shot and up can obtain at most pharmacies . If you have not had a TDap shot in the last 10 years you should obtain one as well. Discussed with patient & provided with informatio n regarding Gardisil vaccine to prevent the 4 strains for HPV that cause cervical cancer if under age 26. Encourage safe sexual practices, to use condoms and limit partners if not already in a monogamous relationsh ip. Do monthly self breast exams. Have mammogram yearly or every other year depending on family history. BRCA testing is now available for patients with strong genetic history of female cancer. If interested contact the office. Engage in daily exercise of low impact aerobic exercise 45-60 minutes 4-5 times weekly. Avoid tobacco and illicit drugs as well as using moderation with alcohol intake less than 1-2 8 oz beverages daily. This lifestyle behavior pattern will lead to less health conditions and longer life span. If BMI greater than 25 weight watchers or dietary consult advised. Patient received above instructio ns, and questions have been answered. If you have any questions please call or respond to this email. Patient was made aware of the patient portal and may obtain a paper copy of today's plan if desired. Pap/hpv sent STD Screen sent Genetic Screen discussed & will consider due to family Hx mother: breast cancer, ovarian cancer, esophogeal cancer. Colon Screen PCP Dexa Screen na Routine Labs PCPMammo ordered [id number] Laura Rueda [facility] [address] [address] 02/13/2023 10:33:51 02/13/2023 12:38:43 Gynecologic examination [id number] Z11.51 Z11.3 Z11.8 Take Calcium with Vitamin D 1200mg daily if not receiving in daily diet. It is strongly advised to have an annual flu shot and up can obtain at most pharmacies . If you have not had a TDap shot in the last 10 years you should obtain one as well. Discussed with patient & provided with informatio n regarding Gardisil vaccine to prevent the 4 strains for HPV that cause cervical cancer if under age 26. Encourage safe sexual practices, to use condoms and limit partners if not already in a monogamous relationsh ip. Do monthly self breast exams. Have mammogram yearly or every other year depending on family history. BRCA testing is now available for patients with strong genetic history of female cancer. If interested contact the office. Engage in daily exercise of low impact aerobic exercise 45-60 minutes 4-5 times weekly. Avoid tobacco and illicit drugs as well as using moderation with alcohol intake less than 1-2 8 oz beverages daily. This lifestyle behavior pattern will lead to less health conditions and longer life span. If BMI greater than 25 weight watchers or dietary consult advised. Patient received above instructio ns, and questions have been answered. If you have any questions please call or respond to this email. Patient was made aware of the patient portal and may obtain a paper copy of today's plan if desired. Pap/hpv sentSTD Screen sentGeneti c Screen discussed & will consider due to family Hx mother: breast cancer, ovarian cancer, esophogeal cancer.Col on Screen PCPDexa Screen naRoutine Labs PCPMammo ordered for 2023 Screening mammography 24 [id number] Z12.31 2022 siteman wnl no changes Menorrhagia [id number] D6 4.9 Heavy menses likely contributi ng to anemia which she had to have two iron transfusio ns recently.W e discuss various options but with her family hx she prefers to stay away from all hormones; which also effect her moods as well. She is interested in a MD consult for endometria l ablation with tubal ligation.U S scheduledR ecent labs from PCP to be requested. Pap/hpv/st d updated [id number] Neeraj Cardona MD [facility] [address],[facility] [place] [address] 02/14/2023 14:20:15 02/14/2023 15:26:29 Menorrhagia [id number] N92.0 [id number] Neeraj Cadrona MD [facility] [address] [address] 02/15/2023 15:22:31 02/15/2023 16:37:59 Menorrhagia [id number] N92.0 This patient is a 42-year-ol d female presents for heavy vaginal bleeding. She has longstandi ng very heavy bleeding. Her menses are regular. However, they require double protection . Patient has accidents, getting blood on her bedding and clothing. Is affected work. She changes a pad or tampon every hour. She leaks blood around the pad and tampon. This bleeding has a profound impact on her quality of life and her activities of daily living. We talked about treatment in detail. Patient is failed medical treatment. She is tried oral contracept marce pills and has continued to bleed very heavily. She is had iron transfusio ns. She is a strong family history of ovarian cancer. We discussed hysterecto my with bilateral salpingo-o ophorectom y in detail. Talked about the risks benefits of hormone replacemen t therapy. We spent over 40 minutes face-to-fa ce. We talked about endometria l ablation. More than 50% of visit was counseling . She is going to decide between endometria l ablation and total laparoscop ic hysterecto my with bilateral salpingo-o ophorectom y. She will let us know her choice. [id number] MD Lalita Siegel [address] [address] 03/19/2023 17:11:09 03/19/2023 18:00:56 Menorrhagia [id number] N92.0 this patient is a 42-year-ol d female with severe menorrhagi a. We have agreed to perform total laparoscop ic hysterecto my and bilateral salpingo-o ophorectom y. She understand s risks, benefits, and alternativ es. She is completed the informed consent process and is ready to proceed. [id number] Neeraj Cardona MD [facility] [address],[facility] [place] [address] 04/04/2023 18:05:05 04/04/2023 18:46:52 Postoperative care [id number] Z48.89 female Patient presents for postop follow-up. She is 1 week postop from a total laparoscop ic hysterecto my bilateral salpingect steven. She has no complaints . Her incisions are clean dry and intact. She is recovering normally. She will follow-up as needed. [id number] MD Lalita Siegel [address] [address] 04/05/2023 13:14:15 04/05/2023 13:15:51 [id number] Neeraj Cardona MD [facility] [address] [address] 11/21/2023 16:10:30 11/21/2023 17:02:58 Vulvovaginitis [id number] N76.0 43-year-ol d female with vulvar irritation and white vaginal discharge. It has been intermitte ntly present over the past 6 months. She is treated. It has not been effective. Vulva was examined. There is erythema medially in the labia minora and introitus. There is some white vaginal discharge. Patient would like to rule out any sexually transmitte d disease. We talked about the medication s. Talked about risks, benefits, and alternativ es. She was given precaution s and instructio ns on the medication . We will follow up on the results and contact the patient Sexually t ransmitted infectious disease [id number] A64 [id number] Neeraj Cardona MD [facility] [address] [address] 09/25/2024 08:56:18 09/25/2024 09:41:30 Well woman health examination [id number] Z01.419 [id number] Annual gynecologi arlette exam performed. Patient will come back in a year unless there are new symptoms. Suggest Calcium with Vitamin D if not eating in diet. Patient advised to get annual flu shot. Recommend yearly physicals and perform monthly breast exams. Genetic testing is available for patients with family history of cancer. Engage in safe sexual practices, use condoms. Encouraged to have daily exercise. Avoid tobacco and illicit drugs, moderation of alcohol. If BMI greater than 25 dietary consult advised. If you have any questions please call or email. mammogram- order given, pt to schedule colon cancer screening - n/a DEXA scan- n/a Pap smear- USPSTF recommends against screening for cervical cancer in women older than 65yo, those who've had a hysterecto my for non-cancer indication s, & who have had adequate prior screening & are not otherwise at high risk for cervical cancer. laboratory evaluation - PCP STI testing - declined Screening mammography 24 [id number] Z12.31 [id number] Acute vaginitis [id number] N76.0 [id number] Discussed empirical treatment with metronidaz ole for suspected BV based on reported symptoms and physical exam findings.D iscussed vulvar care guidelines in addition to laundry/sk in irritants to avoid.José mmended boric acid capsules - insert one capsule vaginally at H.S. after period, intercours e, and/or with symptoms. Disorder o f female perineum [id number] N90.89 [id number] Discussed that if cyst of perineum becomes bothersome , enlarged, swollen, or painful, incision and drainage is recommende d. [id number] Neeraj Cardona MD [facility] [address] [address] 10/08/2024 17:31:50 10/09/2024 09:04:32 Abscess of perineum [id number] L02.792 [id number] Incision and drainage performed. Patient tolerated well.Cultu re collected. Abscess left open to heal by secondary intention (secondary closure)Pr ophylactic antibiotic s sent to prevent systemic infectionD etailed wound instructio ns providedIf the abscess is resolving, the patient may soak the wound several times a day in warm, soapy waterRetur n to office sooner if signs of systemic infection (eg, fever with expanding cellulitis ) or abscess recurrence are presentPat ient verbalizes understand ing of plan of care. Health Concerns Section Related Observation LastModified by Organization Detai ls LastModified Time None Recorded Concern Status LastModified by Organization Details LastModified Time None Recorded Advance Directives Directive None Recorded Payers Insurance Date Sequence Insurance Name Policy Number Policy Recinos Covered Member ID Recinos Member ID Guarantor Name 10/08/2024 1 [employer] [id number] Pricila Dietrich [id number] Pricila Dietrich 10/08/2024 1 [place] [id number] Pricila Dietrich [id number] Pricila Dietrich 10/08/2024 1 [place] [id number] Pricila Dietrich [id number] Pricila Dietrich 10/08/2024 1 [place] [id number] Pricila Dietrich [id number] Pricila Dietrich Notes Date Note Type Note Provider Name and Address Organization Details Recorded Time 3 text/html female Patient presents for postop follow-up. She is 1 week postop from a total laparoscopic hysterectomy bilateral salpingectomy. She has no complaints. Her incisions are clean dry and intact. She is recovering normally. She will follow-up as needed. Neeraj Cardona MD [address], [place], [address], [facility] 04/04/2023 18:44:19 4 text/html Vaginal/Vulvar ProblemReported by Patient 43-year-old female with vulvar irritation and white vaginal discharge. It has been intermittently present over the past 6 months. She is treated. It has not been effective. Vulva was examined. There is erythema medially in the labia minora and introitus. There is some white vaginal discharge. Patient would like to rule out any sexually transmitted disease. We talked about the medications. Talked about risks, benefits, and alternatives. She was given precautions and instructions on the medication. We will follow up on the results and contact the patient Neeraj Cardona MD [address], [place], [address], [facility] 11/21/2023 16:56:22 5 text/html Annual GYNReported by PatientGenitourinary symptomsFor urinary symptoms, patient reportsno hematuriaandno incontinence. For vulva, patient reportsno genital lesion. For vagina, patient reportsnormal vaginal discharge.Breast symptomsFor breast, patient reportsno breast pain,no breast lump, andno nipple discharge.ContraceptionFo r current contraception, patient reportstubal ligation.Endocrine symptomsFor sexual complaints, patient reportsno sexual complaints,no pain during intercourse, andnormal libido. For menopausal symptoms, patient reportsno menopausal symptomsandnormal vaginal lubrication.Psychological symptomsFor psychological symptoms, patient reportsno depression,no anxiety, andno pmdd.Preventative measuresFor preventive measures, patient reportsencourage self breast examination,encourage regular exercise,encourage no tobacco use, andencourage regular mammograms starting age 40. Patient here for annual exam.Patient c/o vaginal irritation, itching, odor, and discharge intermittently since having hysterectomy in 2022. ART HA NP [address], [place], [address], [facility] 09/25/2024 09:38:21 5 text/html 44 y/o female presents for incision and drainage of abscess of perineum.Informed consent obtained. ART HA NP [address], [place], [address], [facility] 10/08/2024 18:23:44 OBGyn Episode Ob Episode Information Episode Created Date Number of Fetuses Patient Bloodtype Patient rh Status Prepregnancy Weight lbs Domestic Partner Domestic Partner Phone Father Name Director Specialty Status 02/01/20 22 1 CLOSED Fetus Data First Name Last Name Admitted to NICU Weight (g) Sex Living Outcome Pediatric Complications Fetus ID Race Codes Race Delivery Type M [id number] Vaginal Delivery Nain Calculation Initial Nain Date Initial Exam Date Initial Exam Provider Initial Ultrasound Date Last Menstrual Period Date Ultra Sound Weeks Gestation 0 Eighteen To Twenty Week Nain Update Ultra Sound Date Fundal Height At Umbil Quickening Date Ultra Sound Latest Weeks Gestation Final Nain Confirmed By Final Nain Confirmed Date Final Nain Date Ultra Sound Latest Days Gestation 0 0 Menstrual History Last Menstrual Date Menses Monthly On Bcp Conception Prior Menses Frequency Hcg Plus Date Menarche Onset Age Delivery Information Delivery Date Delivery Type Labor Anesthesia Weeks Gestation Incision Type Labor Labor Length Hrs Delivered By Post Complications Tubal Sterilization Discharge Date Comments 8 Discharge Information Feeding Method Contraceptive Method Maternal HG B and HCT Levels Ob Episode Information Episode Created Date Number of Fetuses Patient Bloodtype Patient rh Status Prepregnancy Weight lbs Domestic Partner Domestic Partner Phone Father Name Director Specialty Status 02/01/20 22 1 CLOSED Fetus Data First Name Last Name Admitted to NICU Weight (g) Sex Living Outcome Pediatric Complications Fetus ID Race Codes Race Delivery Type F [id number] Vaginal Delivery Nain Calculation Initial Nain Date Initial Exam Date Initial Exam Provider Initial Ultrasound Date Last Menstrual Period Date Ultra Sound Weeks Gestation 0 Eighteen To Twenty Week Nain Update Ultra Sound Date Fundal Height At Umbil Quickening Date Ultra Sound Latest Weeks Gestation Final Nain Confirmed By Final Nain Confirmed Date Final Nain Date Ultra Sound Latest Days Gestation 0 0 Menstrual History Last Menstrual Date Menses Monthly On Bcp Conception Prior Menses Frequency Hcg Plus Date Menarche Onset Age Delivery Information Delivery Date Delivery Type Labor Anesthesia Weeks Gestation Incision Type Labor Labor Length Hrs Delivered By Post Complications Tubal Sterilization Discharge Date Comments 2 Discharge Information Feeding Method Contraceptive Method Maternal HG B and HCT Levels Ob Episode Information Episode Created Date Number of Fetuses Patient Bloodtype Patient rh Status Prepregnancy Weight lbs Domestic Partner Domestic Partner Phone Father Name Director Specialty Status 02/01/20 22 1 CLOSED Fetus Data First Name Last Name Admitted to NICU Weight (g) Sex Living Outcome Pediatric Complications Fetus ID Race Codes Race Delivery Type M [id number] Vaginal Delivery Nain Calculation Initial Nain Date Initial Exam Date Initial Exam Provider Initial Ultrasound Date Last Menstrual Period Date Ultra Sound Weeks Gestation 0 Eighteen To Twenty Week Nain Update Ultra Sound Date Fundal Height At Umbil Quickening Date Ultra Sound Latest Weeks Gestation Final Nain Confirmed By Final Nain Confirmed Date Final Nain Date Ultra Sound Latest Days Gestation 0 0 Menstrual History Last Menstrual Date Menses Monthly On Bcp Conception Prior Menses Frequency Hcg Plus Date Menarche Onset Age Delivery Information Delivery Date Delivery Type Labor Anesthesia Weeks Gestation Incision Type Labor Labor Length Hrs Delivered By Post Complications Tubal Sterilization Discharge Date Comments 6 Discharge Information Feeding Method Contraceptive Method Maternal HG B and HCT Levels
--- OUTSIDE RECORDS SUMMARY | 2025-04-22 08:09 | XMS_ITS | Clinical Summary ---
Author Organization [facility] Address [address] [place] [address] Care Team Providers Care Tunnel Kiln Operator Name Role Phone Eligio Aguilar DO Primary Care Provider [phone] Source Comments [facility],non-owned Affiliates and Associated Physician Practices is amultiple site organization consisting of ambulatory clinics and hospital sitesin [place], [place], [place] and [place]. This disclosure is being madepursuant to the Care Everywhere program and may not contain all information available regarding this patient. Last updated 18.[facility] Allergies No known active allergies Medications * Be aware that medications may not be up to date on this document. Alwaysverify current medications with the patient. levothyroxine (SYNTHROID) 175 MCG tablet 1tab PO QD with only water 1st thing in AM at least 45' AC breakfast 8 Active acetaminophen (TYLENOL) 325 MG tablet Take 325 mg by mouth every 4 hours as needed for Fever or Pain Maximum allowable Acetaminophen amount = 4 Grams (4000 mg) / 24 hours. Active buPROPion XL 24hr (WELLBUTRIN-XL ) 150 MG tablet Take 150 mg by mouth once daily 1 Active DULoxetine (CYMBALTA) 30 MG capsule TAKE 1 ORAL CAPSULES ONCE A DAY FOR 7 DAYS, THEN INCREASE TO 2 ORAL CAPSULES ONCE A DAY 0 Active omeprazole (PRILOSEC) 20 MG capsule Take 1 (one) capsule by mouth daily before breakfast 30 capsule 5 1 Active vitamin D, ergocalciferol , (DRISDOL) 1.25 MG (81921 UT) capsule Take 1 (one) capsule by mouth every 7 days 12 capsule Active Resolved Problems Problem Noted Date Diagnosed Date Resolved Date S/P laparoscopic sleeve gastrectomy 10/07/2018 10/09/2018 Morbid obesity 10/07/2018 10/09/2018 Family History Medical History Relation Name Comments Hyperlipidemia Father COPD - Chronic Obstructive Pulmonary Disease Maternal Grandfather Diabetes - Type 2 Maternal Grandfather Aneurysm, Brain Maternal Grandmother Cancer - Breast Mother ovarian canc er and esophageal cancer Cancer - Esophageal Mother Cancer - Ovarian Mother Hypertension Mother CVA Paternal Grandfather CVA Paternal Grandmother Thyroid Disease Sister Relation Name Status Comments Father Maternal Grandfather Maternal Grandmother Mother Paternal Grandfather Paternal Grandmother Sister Social History Tobacco Use Types Packs/Day Years Used Date Smoking Tobacco: Former Cigarettes 0 Q uit: 05/21/2018 Smokeless Tobacco: Never Alcohol Use Standard Drinks/Week Comments No 0 (1 standard drink = 0.6 oz pur e alcohol) rarely Comments No Sex and Gender Information Value Date Recorded Sex Assigned at Not on file Legal Sex Female 2:28 PM CDT Gender Identity Not on file Sexual Orientation Not on file Last Filed Vital Signs Vital Sign Reading Time Taken Comments Blood Pressure 120/80 07/01/2021 12:54 PM SENIOR SPECIALIST Pulse 79 07/01/2021 12:54 PM SENIOR SPECIALIST Temperature 36.8 C (98.3 F) 07/01/2021 12:54 PM SENIOR SPECIALIST Respiratory Rate 17 03/07/2021 9:20 AM SENIOR SPECIALIST Oxygen Saturation 99% 03/07/2021 9:20 AM SENIOR SPECIALIST Inhaled Oxygen Concentration - - Weight 110.2 kg (243 lb) 07/20/2021 7:58 AM CDT Height 170.2 cm (5' 7) 07/20/2021 7:58 AM CDT Body Mass Index 38.06 07/20/2021 7:58 AM CDT Plan of Treatment Health Maintenance Due Date Last Done Comments LIPID TESTING 1982 HIV SCREENING 1997 HEPATITIS C SCREENING 07/26/2000 DTAP/TDAP/TD VACCINES (1 - Tdap) 2001 HEPATITIS B VACCINE (1 of 3 - 19+ 3-dose series) 2001 PAP SMEAR 08/01/2003 HPV VACCINE (1 - 3-dose SCDM series) 2009 MAMMOGRAM 09/21/2020 09/21/2018 DEPRESSION SCREENING 04/30/2024 COVID-19 VACCINE (1 - 2024-2 6 season) 2024 INFLUENZA VACCINE (#1) 2024 ZOSTER VACCINE (1 of 2) 2032 HIB VACCINE Aged Out No longer eligi ble based on patient's age to complete this topic MENINGOCOCCAL (Group B) VACC INE SHARED DECISION-MAKING Aged Out No longer eligibl e based on patient's age to complete this topic MENINGOCOCCAL GROUPS A/C/Y/W VACCINE Aged Out No longer eligible b ased on patient's age to complete this topic PNEUMOCOCCAL VACCINE Aged Out No long er eligible based on patient's age to complete this topic Insurance ANTH SELF PAY NO INSURANCE Member Subscriber Plan / Payer (Ef fective for All Dates) Name:Cami Dietrich Member ID:Not on file Relation to Subscriber:Not on file Name:CAMI DIETRICH Subscriber ID:Not on file Address: [address] [place] [id number] Payer ID:Not on file Group ID:Not on file Type:Self Pay Address: [place], [place] Advance Directives * Full Code (Latest Code Status on File) Date Activated Date Inactivated Comments 10/07/2018 5:27 PM 10/09/2018 2:27 PM Care Teams Tunnel Kiln Operator Relationship Specialty Start Date End Date Eligio Aguilar DO [address] [place] [address] PCP - General Family Medicine 04/12/18
--- OUTSIDE RECORDS SUMMARY | 2025-04-22 08:09 | XMS_ITS | Clinical Summary ---
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 Overview (08/03/2016): NONTOX NODUL GOITER NOS Obesity, diabetes, and hypertension syndrome Overview (08/04/2016): DYSMETABOLIC SYNDROME X Psoriasis 09/13/2013 Overview (08/04/2016): OTHER PSORIASIS Hyperandrogenism 09/13/2013 Overview (08/05/2016): Hyperandrogenism Morbid obesity 05/06/2008 Overview (08/03/2016): MORBID OBESITY Vitamin B-complex deficiency 05/06/2008 Overview (08/04/2016): B-COMPLEX DEFIC NEC Depression 05/06/2008 Overview (08/05/2016): DEPRESSIVE DISORDER NEC Immunizations Immunization Administration Dates Next Due TD Preservative Free 04/30/2006 Surgical History Surgery Date Site/Laterality Comments OTHER SURGICAL HISTORY 04/30/2007 - 04/29/2008 : OTHER SURGICAL HISTORY 04/30/2005 - 04/29/2006 : OTHER SURGICAL HISTORY 04/30/2001 - 04/29/2002 : SHOULDER ARTHROSCOPY OTHER SURGICAL HISTORY 04/30/2015 - 04/29/2016 Hemithyroidectomy Medical History Medical History Date Comments Hx Other Medical ; Outc ome: Male Hx Other Medical ; Outc ome: Female Depression Depression Hx Other Medical Thyroid Nodule Thyroid disease Thyroid problems Family History Medical History Relation Name Comments Hyperlipidemia Father Hyperlipidemi a; Emphysema Maternal Grandfather emphyse ma; Cause of : emphysema Anuerysm Maternal Grandmother Aneurys m; Cause of : Aneurysm Breast cancer Mother Cancer -breast ; Hypertension Mother Hypertension; Thyroid disease Other 1 Family histo ry of Thyroid disorder; Other Other 2 No family histo ry of Diabetes mellitus; Stroke Paternal Grandfather Stroke; Stroke Paternal Grandmother Stroke; Cause of : Stroke Hypothyroidism Sister Hypothyroidis m; Relation Name Status Comments Father Alive Maternal Grandfather (Age 50) Maternal Grandmother (Age 40) Mother Other 1 Other 2 Paternal Grandfather Paternal Grandmother (Age 50) Sister Social History Tobacco Use Types Packs/Day Years Used Date Smoking Tobacco: Former Smokeless Tobacco: Never Alcohol Use Standard Drinks/Week Comments Yes 0 (1 standard drink = 0.6 oz pur e alcohol) occasionally PHQ-2 Answer Date Recorded PHQ-2 Score 0 12/21/2018 Comments No Sex and Gender Information Value Date Recorded Sex Assigned at Not on file Legal Sex Female 11:52 PM PROJECT MANAGER/TEAM COACH Gender Identity Not on file Sexual Orientation Not on file Obstetrics History Para Term AB IAB SAB Ectopic Multiple Livin g Live Births 4 3 3 1 1 3 3 Date Outcome GA Total Labor Labor/2nd/3rd Weight Sex Type Anes PTL Evangelina A1 A5 Name Clin SAB 06/2001 Term 38w 0d 2.807 kg (6 lb 3 oz) F Vag-S pont N Living Complications: Erin pranay Hypertension 02/2006 Term 38w 0d 2.92 kg (6 lb 7 oz) M Vag-S pont N Living 08/2007 Term 40w 0d 3.26 kg (7 lb 3 oz) M Vag-S pont N Living Last Filed Vital Signs Vital Sign Reading Time Taken Comments Blood Pressure 122/78 10/21/2019 10:41 AM CDT Pulse 80 01/26/2017 2:15 PM CDT Temperature - - Respiratory Rate - - Oxygen Saturation - - Inhaled Oxygen Concentration - - Weight 99.3 kg (219 lb) 10/21/2019 10:41 AM CDT Height 172.7 cm (5' 8) 10/21/2019 10:41 AM CDT Body Mass Index 33.3 10/21/2019 10:41 AM CDT Plan of Treatment Not on file Insurance [employer] [place] Care Teams Financial Internship Relationship Specialty Start Date End Date Eligio Aguilar DO PCP - General 11/26/06
== END 2025-04-22 08:05 | disposition home or self-care (01) ==
LOC: ANHFOHIMG 08:06
PROVIDERS: PCP Family Medicine; Visit Provider Student in an Organized Health Care Education/Training Program
DX: Z12.31 Encounter for screening mammogram for malignant neoplasm of breast (principal)
CPT/HCPCS: 77063; 77067